=== PATIENT | female | born 1950 | race Caucasian/White ===

== ENCOUNTER 2020-05-24 20:24 | Outpatient (REF) | payer MEDICARE, BC, SELFPAY ==
[2020-05-24 20:33] LABS: Anion Gap 9.7 mmol/L (3-11); BUN 20 mg/dL (7-18); CO2 26.3 mmol/L (21.0-32.0); CREATININE 0.91 mg/dL (0.55-1.02); Chloride 103 mmol/L (98-107); Glucose 108 mg/dL (74-106); Potassium 3.9 mmol/L (3.5-5.1); Sodium 139 mmol/L (136-145)
[2020-05-24 20:41] LABS: Calcium 9.2 mg/dL (8.5-10.1)
== END 2020-05-24 20:44 ==
LOC: NCHCN 20:24
PROVIDERS: Visit Provider Nurse Practitioner Community Health
DX: E03.9 Hypothyroidism, unspecified (principal); I10 Essential (primary) hypertension
CPT/HCPCS: 80048; 84443

== ENCOUNTER 2021-05-29 11:39 | Outpatient (REF) | payer MEDICARE, BC, SELFPAY ==
[2021-05-29 17:03] LABS: Anion Gap 6.1 mmol/L (3-11); BUN 20 mg/dL (7-18); CO2 27.9 mmol/L (21.0-32.0); Calcium 9.2 mg/dL (8.5-10.1); Chloride 106 mmol/L (98-107); Estimated GFR 54.97 (mL/min/1.73m2); Glucose 96 mg/dL (74-106); Potassium 4.4 mmol/L (3.5-5.1); Sodium 140 mmol/L (136-145); TSH 2.15 uIU/mL (0.36-3.74)
== END 2021-05-29 11:40 | disposition home or self-care (01) ==
LOC: NCHCN 11:39
PROVIDERS: Visit Provider Nurse Practitioner Community Health
DX: I10 Essential (primary) hypertension (principal); E03.9 Hypothyroidism, unspecified
CPT/HCPCS: 80048; 84443

== ENCOUNTER 2022-03-04 13:39 | Outpatient (REF) | payer MEDICARE, BC, SELFPAY ==
[2022-03-04 15:12] LABS: Anion Gap 10.7 mmol/L (3-11); BUN 16 mg/dL (7-18); CO2 25.3 mmol/L (21.0-32.0); CREATININE 0.8 mg/dL (0.55-1.02); Calculated LDL 129 mg/dL (<100); Chloride 105 mmol/L (98-107); Cholesterol 215 mg/dL (<200); Glucose 102 mg/dL (74-106); HDL Cholesterol 78 mg/dL (40-60); Potassium 3.9 mmol/L (3.5-5.1); Sodium 141 mmol/L (136-145); TSH 2.47 uIU/mL (0.36-3.74); Triglyceride 43 mg/dL (<150)
== END 2022-03-04 13:40 | disposition home or self-care (01) ==
LOC: NCHCN 13:39
PROVIDERS: Visit Provider Nurse Practitioner Family
DX: Z00.00 Encounter for general adult medical examination without abnormal findings (principal)
CPT/HCPCS: 80048; 80061; 84443

== ENCOUNTER 2022-04-11 18:24 | Outpatient (REF) | payer MEDICARE, BC, SELFPAY ==
[2022-04-11 21:19] LABS: Anion Gap 8.2 mmol/L (3-11); BUN 21 mg/dL (7-18); CO2 26.8 mmol/L (21.0-32.0); CREATININE 0.9 mg/dL (0.55-1.02); Calcium 8.9 mg/dL (8.5-10.1); Chloride 103 mmol/L (98-107); Glucose 112 mg/dL (74-106); Potassium 4.2 mmol/L (3.5-5.1); Sodium 138 mmol/L (136-145)
== END 2022-04-11 18:25 | disposition home or self-care (01) ==
LOC: NCHCN 18:24
PROVIDERS: Visit Provider Nurse Practitioner Family
DX: I10 Essential (primary) hypertension (principal)
CPT/HCPCS: 80048

== ENCOUNTER 2022-04-29 22:35 | Outpatient (REF) | payer MEDICARE, BC, SELFPAY ==
[2022-04-29 23:13] LABS: Hemoglobin A1C 5.8 % (<5.7)
[2022-04-29 23:16] LABS: BUN 29 mg/dL (7-18); Chloride 101 mmol/L (98-107); Estimated GFR 54.81 (mL/min/1.73m2); Glucose 118 mg/dL (74-106); Potassium 4.1 mmol/L (3.5-5.1); Sodium 135 mmol/L (136-145)
== END 2022-04-29 22:36 | disposition home or self-care (01) ==
LOC: NCHCN 22:35
PROVIDERS: Visit Provider Nurse Practitioner Family
DX: R73.9 Hyperglycemia, unspecified (principal); I10 Essential (primary) hypertension
CPT/HCPCS: 80048; 83036

== ENCOUNTER 2023-05-01 17:19 | Outpatient (REF) | payer MEDICARE, BC, SELFPAY ==
[2023-05-01 21:19] LABS: Hemoglobin A1C 5.7 % (<5.7)
[2023-05-01 21:21] LABS: Anion Gap 7.7 mmol/L (3-11); BUN 22 mg/dL (7-18); CO2 27.3 mmol/L (21.0-32.0); CREATININE 0.9 mg/dL (0.55-1.02); Chloride 103 mmol/L (98-107); Estimated GFR 68.35 (mL/min/1.73m2); Glucose 102 mg/dL (74-106); Potassium 3.8 mmol/L (3.5-5.1); Sodium 138 mmol/L (136-145)
[2023-05-01 21:51] LABS: TSH (W/Ref FT4) 3.25 uIU/mL (0.36-3.74)
== END 2023-05-01 17:20 | disposition home or self-care (01) ==
LOC: NCHCN 17:19
PROVIDERS: Visit Provider Family Medicine
DX: R73.03 Prediabetes (principal); E03.9 Hypothyroidism, unspecified; I10 Essential (primary) hypertension
CPT/HCPCS: 80048; 83036; 84443

== ENCOUNTER 2024-04-12 15:36 | Outpatient (REF) | payer MEDICARE, BC, SELFPAY ==
[2024-04-12 15:37] LABS: Anion Gap 6.3 mmol/L (3-11); BUN 15 mg/dL (7-18); CO2 29.7 mmol/L (21.0-32.0); CREATININE 0.9 mg/dL (0.55-1.02); Chloride 104 mmol/L (98-107); Estimated GFR 67.92 (mL/min/1.73m2); Glucose 161 mg/dL (74-106); Potassium 4.2 mmol/L (3.5-5.1); Sodium 140 mmol/L (136-145); TSH 2.06 uIU/Ml (0.36-3.74)
== END 2024-04-12 15:37 | disposition home or self-care (01) ==
LOC: NCHCN 15:36
PROVIDERS: PCP Family Medicine; Visit Provider Family Medicine
DX: I10 Essential (primary) hypertension (principal); E03.9 Hypothyroidism, unspecified
CPT/HCPCS: 80048; 84443

== ENCOUNTER 2025-04-11 18:12 | Outpatient (REF) | payer MEDICARE, BC, SELFPAY ==
[2025-04-11 22:19] LABS: Abs Immature Grans 0.02 10^3/uL (0.0-0.06); HCT 38.6 % (36.0-46.0); HGB 13.0 g/dL (11.2-15.7); Immature Grans % 0.3 %; MCH 29.2 pg (27.0-33.0); MCHC 33.7 % (32.0-36.0); MCV 87 fL (80-95); MPV 11.1 fL (8.0-11.0); Platelet Count 230 10^3/uL (130-400); RBC 4.45 10^6/uL (3.93-5.22); RDW 13.0 % (11.7-14.6); RDW-SD 40.7 fL; WBC 7.82 10^3/uL (4.4-10.8)
[2025-04-11 22:44] LABS: Anion Gap 8.3 mmol/L (3-11); BUN 25 mg/dL (7-18); CO2 27.7 mmol/L (21.0-32.0); Calcium 9.4 mg/dL (8.5-10.1); Chloride 103 mmol/L (98-107); Estimated GFR 67.50 (mL/min/1.73m2); Glucose 181 mg/dL (74-106); Potassium 3.9 mmol/L (3.5-5.1); Sodium 139 mmol/L (136-145); TSH 2.41 uIU/mL (0.36-3.74)
[2025-04-13 10:45] LABS: Lyme Ab w Rflx to Lyme Confirm Negative (Negative)
[2025-04-15 16:56] LABS: B. miyamotoi PCR Negative (Negative); Babesia divergens/MO-1 Negative (Negative); Ehrlichia muris eauclairensis Negative (Negative)
== END 2025-04-11 18:13 | disposition home or self-care (01) ==
LOC: NCHCN 18:12
PROVIDERS: PCP Family Medicine; Visit Provider Nurse Practitioner Family
DX: I10 Essential (primary) hypertension (principal); S30.860A Insect bite (nonvenomous) of lower back and pelvis, initial encounter; W57.XXXA Bitten or stung by nonvenomous insect and other nonvenomous arthropods, initial encounter; R53.83 Other fatigue; E03.9 Hypothyroidism, unspecified
CPT/HCPCS: 80048; 87798; 84443; 85025; 86618